=== PATIENT | female | born 1985 | race Caucasian/White ===

== ENCOUNTER 2019-10-29 09:29 | Emergency (ER) | payer BC, OTHER ==
[~2019-10-29] VITALS: Ht 168 cm; Wt 67.0 kg
--- NOTE | 2019-10-29 09:45 | ED GI ---
General Stated Complaint: N/V/D Source of Information: Patient History of Present Illness Date Seen by Provider: Oct 29, 2019 Time Seen by Provider: 09:40 Initial Comments 34-year-old female presents with nausea vomiting diarrhea. Patient reports that she hasn't been able to hold anything down for the last 3 days. She doesn't have abdominal pain but just a lot of nausea and some occasional cramping. Patient reports it started after she ate at a restaurant has not sure if she possibly got some food poisoning. Patient reports that she was only one that had eaten there. Patient does not have any cough, fevers. Patient does report some dark urine. No other systemic complaints Allergies and Home Medications Allergies Coded Allergies: nitrofurantoin (Verified Allergy, Unknown, headache, 10/29/19) Patient Home Medication List Home Medication List Reviewed: Yes Review of Systems Review of Systems Constitutional: No chills, No fever EENTM: No Symptoms Reported Respiratory: No Symptoms Reported Cardiovascular: No Symptoms Reported Gastrointestinal: Denies Abdominal Pain; Diarrhea, Nausea, Vomiting Genitourinary: See HPI Musculoskeletal: no symptoms reported Skin: no symptoms reported Past Qbpxijx-Qjwdvp-Dhrpne Hx Past Med/Social Hx: Reviewed Nursing Past Med/Soc Hx Patient Social History Recent Foreign Travel: No Contact w/Someone Who Travel: No Physical Exam Vital Signs Vital Signs - First Documented 10/29/19 09:47 Temp 36.8 Pulse 75 Resp 18 B/P (MAP) 112/89 (97) Pulse Ox 100 O2 Delivery Room Air Capillary Refill : Height/Weight/BMI Height: '" Weight: lbs. oz. kg; BMI Method: General Appearance: WD/WN, no apparent distress Respiratory: chest non-tender, lungs clear, normal breath sounds Cardiovascular: normal peripheral pulses, regular rate, rhythm Gastrointestinal: non tender, soft Neurologic/Psychiatric: alert, normal mood/affect, oriented x 3 Skin: normal color, warm/dry Progress/Results/Core Measures Results/Orders Lab Results Laboratory Tests Test 10/29/19 10:05 10/29/19 10:15 Range/Units Urine Color YELLOW Urine Clarity CLOUDY Urine pH 7.5 5-9 Urine Specific [place] 1.025 H 1.016-1.022 Urine Protein 1+ H NEGATIVE Urine Glucose (UA) NEGATIVE NEGATIVE Urine Ketones NEGATIVE NEGATIVE Urine Nitrite NEGATIVE NEGATIVE Urine Bilirubin NEGATIVE NEGATIVE Urine Urobilinogen 0.2 < = 1.0 MG/DL Urine Leukocyte Esterase 1+ H NEGATIVE Urine RBC (Auto) 2+ H NEGATIVE Urine RBC 10-25 H /HPF Urine WBC >100 H /HPF Urine Squamous Epithelial Cells 5-10 /HPF Urine Crystals NONE /LPF Urine Bacteria MODERATE H /HPF Urine Casts NONE /LPF Urine Mucus NEGATIVE /LPF Urine Culture Indicated YES White Blood Count 6.5 4.3-11.0 10^3/uL Red Blood Count 4.36 4.35-5.85 10^6/uL Hemoglobin 13.7 11.5-16.0 G/DL Hematocrit 41 35-52 % Mean Corpuscular Volume 94 80-99 FL Mean Corpuscular Hemoglobin 31 25-34 PG Mean Corpuscular Hemoglobin Concent 33 32-36 G/DL Red Cell Distribution Width 12.4 10.0-14.5 % Platelet Count 180 130-400 10^3/uL Mean Platelet Volume 9.5 7.4-10.4 FL Neutrophils (%) (Auto) 69 42-75 % Lymphocytes (%) (Auto) 24 12-44 % Monocytes (%) (Auto) 4 0-12 % Eosinophils (%) (Auto) 2 0-10 % Basophils (%) (Auto) 0 0-10 % Neutrophils # (Auto) 4.5 1.8-7.8 X 10^3 Lymphocytes # (Auto) 1.6 1.0-4.0 X 10^3 Monocytes # (Auto) 0.3 0.0-1.0 X 10^3 Eosinophils # (Auto) 0.1 0.0-0.3 10^3/uL Basophils # (Auto) 0.0 0.0-0.1 10^3/uL Sodium Level 141 135-145 MMOL/L Potassium Level 3.8 3.6-5.0 MMOL/L Chloride Level 110 H 98-107 MMOL/L Carbon Dioxide Level 23 21-32 MMOL/L Anion Gap 8 5-14 MMOL/L Blood Urea Nitrogen 15 7-18 MG/DL Creatinine 0.79 0.60-1.30 MG/DL Estimat Glomerular Filtration Rate > 60 BUN/Creatinine Ratio 19 Glucose Level 73 70-105 MG/DL Calcium Level 9.2 8.5-10.1 MG/DL Corrected Calcium 9.1 8.5-10.1 MG/DL Total Bilirubin 0.6 0.1-1.0 MG/DL Aspartate Amino Transf (AST/SGOT) 16 5-34 U/L Alanine Aminotransferase (ALT/SGPT) 16 0-55 U/L Alkaline Phosphatase 59 40-136 U/L Total Protein 6.8 6.4-8.2 GM/DL Albumin 4.1 3.2-4.5 GM/DL Lipase 60 8-78 U/L My Orders Orders - LAUREN CARLSON DO Cbc With Automated Diff (10/29/19 09:52) Comprehensive Metabolic Panel (10/29/19 09:52) Lipase (10/29/19 09:52) Ua Culture If Indicated (10/29/19 09:52) Abdomen, Flat & Upright/Decub (10/29/19 09:52) Ondansetron Injection (Zofran Injectio (10/29/19 10:00) Lactated Ringers (Lr 1000 Ml Iv Solution (10/29/19 09:52) Ed Iv/Invasive Line Start (10/29/19 09:52) Urine Culture (10/29/19 10:05) Medications Given in ED Current Medications Medications Dose Ordered Sig/Martina Route Start Time Stop Time Status Last Admin Dose Admin Ondansetron HCl 4 mg ONCE ONCE IVP 10/29/19 10:00 10/29/19 10:01 DC 10/29/19 10:17 4 MG Vital Signs/I&O 10/29/19 09:47 Temp 36.8 Pulse 75 Resp 18 B/P (MAP) 112/89 (97) Pulse Ox 100 O2 Delivery Room Air Progress Progress Note : Time: 10:51 Progress Note NAME: LAURENT MARQUEZ [facility] REC#: [id number] PT STATUS: REG ER : 1985 PHYSICIAN: LAUREN CARLSON DO ADMIT DATE: 10/29/19/ER Draft Date of Exam:10/29/19 ABDOMEN, FLAT & UPRIGHT/DECUB HISTORY: Nausea, vomiting, diarrhea. COMPARISON: None TECHNIQUE: Upright and supine frontal views of the abdomen. FINDINGS: The bowel loops are nondistended. No obstruction is seen. There is moderate stool throughout the colon. No large collection of free air is seen. No extraosseous calcifications are seen. Surgical clips are noted in the pelvis. IMPRESSION: 1. No bowel obstruction or large collection of free air. 2. Moderate stool in the colon Departure Impression Primary Impression: Constipation Qualified Codes: K59.00 - Constipation, unspecified Additional Impression: Cystitis Disposition: HOME, SELF-CARE Condition: Stable Departure-Patient Inst. Referrals: NO,LOCAL PHYSICIAN (PCP) Primary Care Physician Patient Instructions: Acute Cystitis (DC), Constipation, Adult (DC) Scripts Ondansetron (Ondansetron Odt) 4 Mg Tab.rapdis 4 MG PO Q6H PRN for NAUSEA/VOMITING, #20 TAB Prov: LAUREN CARLSON DO 10/29/19 Ciprofloxacin HCl (Ciprofloxacin HCl) 500 Mg Tablet 500 MG PO BID, #14 TAB Prov: LAUREN CARLSON DO 10/29/19 LAUREN CARLSON DO Oct 29, 2019 09:45
[2019-10-29] MEDS ORDERED: LACTATED RINGERS 1,000 ML IV STA (09:52)
[2019-10-29] MEDS ORDERED: ONDANSETRON 4 MG/2 ML (SDV) Z0FRAN IVP ONE (10:00)
[2019-10-29 10:13] LABS: BILIRUBIN,URINE NEGATIVE (NEGATIVE); CLARITY,URINE CLOUDY; COLOR,URINE YELLOW; GLUCOSE, URINE (UA) NEGATIVE (NEGATIVE); KETONES,URINE NEGATIVE (NEGATIVE); LEUKOCYTE ESTERASE ,URINE 1+ (NEGATIVE); NITRITE,URINE NEGATIVE (NEGATIVE); PH,URINE 7.5 (5-9); PROTEIN,URINE 1+ (NEGATIVE)
[2019-10-29 10:20] LABS: BACTERIA,URINE MODERATE /HPF; WBC,URINE >100 /HPF
[2019-10-29 10:27] LABS: BASOPHILS % (AUTO) 0 % (0-10); EOSINOPHILS # (AUTO) 0.1 10^3/uL (0.0-0.3); EOSINOPHILS % (AUTO) 2 % (0-10); HEMATOCRIT 41 % (35-52); HEMOGLOBIN 13.7 G/DL (11.5-16.0); LYMPHOCYTES # (AUTO) 1.6 X 10^3 (1.0-4.0); LYMPHOCYTES % (AUTO) 24 % (12-44); MEAN CORPUSCULAR HEMOGLOBIN 31 PG (25-34); MEAN CORPUSCULAR HGB CONC 33 G/DL (32-36); MEAN CORPUSCULAR VOLUME 94 FL (80-99); MEAN PLATELET VOLUME 9.5 FL (7.4-10.4); MONOCYTES # (AUTO) 0.3 X 10^3 (0.0-1.0); MONOCYTES % (AUTO) 4 % (0-12); NEUTROPHILS # (AUTO) 4.5 X 10^3 (1.8-7.8); NEUTROPHILS % (AUTO) 69 % (42-75); PLATELET COUNT 180 10^3/uL (130-400); RED CELL DISTRIBUTION WIDTH 12.4 % (10.0-14.5); WHITE BLOOD COUNT 6.5 10^3/uL (4.3-11.0)
--- NOTE | 2019-10-29 10:44 | Diagnostic Imaging Report ---
HISTORY: Nausea, vomiting, diarrhea. COMPARISON: None TECHNIQUE: Upright and supine frontal views of the abdomen. FINDINGS: The bowel loops are nondistended. No obstruction is seen. There is moderate stool throughout the colon. No large collection of free air is seen. No extraosseous calcifications are seen. Surgical clips are noted in the pelvis. IMPRESSION: 1. No bowel obstruction or large collection of free air. 2. Moderate stool in the colon. Dictated by: Dictated on workstation # [id number]
[2019-10-29 10:45] LABS: ALANINE AMINOTRANSFERASE 16 U/L (0-55); ALBUMIN 4.1 GM/DL (3.2-4.5); ALKALINE PHOSPHATASE 59 U/L (40-136); BILIRUBIN,TOTAL 0.6 MG/DL (0.1-1.0); BUN/CREATININE RATIO 19; CALCIUM 9.2 MG/DL (8.5-10.1); CARBON DIOXIDE 23 MMOL/L (21-32); CHLORIDE 110 MMOL/L (98-107); CREATININE SERUM 0.79 MG/DL (0.60-1.30); GFR ESTIMATED > 60; GLUCOSE 73 MG/DL (70-105); LIPASE 60 U/L (8-78); POTASSIUM 3.8 MMOL/L (3.6-5.0); SODIUM 141 MMOL/L (135-145); TOTAL PROTEIN 6.8 GM/DL (6.4-8.2)
[2019-10-29] MEDS ORDERED: CIPR500T4 PO (11:00)
[2019-10-29] MEDS ORDERED: ONDA4TAB11 PO (11:00)
[2019-10-29 11:10] VITALS: BP 112/89
== END 2019-10-29 11:10 | disposition home or self-care (01) ==
LOC: ER 09:31 → MERGE 09:31 → ER 11:10
DX: K59.00 Constipation, unspecified (principal); N30.90 Cystitis, unspecified without hematuria; Z88.1 Allergy status to other antibiotic agents
CPT/HCPCS: 36415; 74019; 80053; 81000; 83690; 85025; 87088; 87186

== ENCOUNTER → 2019-12-04 | Outpatient (CLI) | payer BC ==
[~2019-12-04] MED LIST: CIPR500T4 PO; ONDA4TAB11 PO
[2019-12-04 10:08] LABS: BILIRUBIN,URINE NEGATIVE (NEGATIVE); CLARITY,URINE TURBID; COLOR,URINE YELLOW; GLUCOSE, URINE (UA) NEGATIVE (NEGATIVE); KETONES,URINE NEGATIVE (NEGATIVE); LEUKOCYTE ESTERASE ,URINE 1+ (NEGATIVE); NITRITE,URINE POSITIVE (NEGATIVE); PROTEIN,URINE TRACE (NEGATIVE)
[2019-12-04 10:16] LABS: BACTERIA,URINE MODERATE /HPF; RBC,URINE RARE /HPF; WBC,URINE >100 /HPF
== END ==
LOC: SDC 09:53
PROVIDERS: ATTEND Nurse Practitioner Family
DX: R35.0 Frequency of micturition (principal)
CPT/HCPCS: 81000; 87077; 87088

== ENCOUNTER → 2020-03-12 | Outpatient (CLI) | payer BC ==
[2020-03-12 11:02] LABS: BILIRUBIN,URINE NEGATIVE (NEGATIVE); CLARITY,URINE CLEAR; COLOR,URINE YELLOW; GLUCOSE, URINE (UA) NEGATIVE (NEGATIVE); KETONES,URINE NEGATIVE (NEGATIVE); LEUKOCYTE ESTERASE ,URINE 1+ (NEGATIVE); NITRITE,URINE NEGATIVE (NEGATIVE); PROTEIN,URINE 1+ (NEGATIVE)
[2020-03-12 11:18] LABS: BACTERIA,URINE MODERATE /HPF; WBC,URINE >100 /HPF
== END ==
LOC: LAB 10:43
PROVIDERS: ATTEND Family Medicine
DX: R30.0 Dysuria (principal)
CPT/HCPCS: 81000; 87077; 87088; 87186

== ENCOUNTER → 2020-07-15 | Outpatient (CLI) | payer BC ==
[2020-07-15 10:26] LABS: BILIRUBIN,URINE NEGATIVE (NEGATIVE); CLARITY,URINE CLOUDY; COLOR,URINE YELLOW; GLUCOSE, URINE (UA) NEGATIVE (NEGATIVE); KETONES,URINE NEGATIVE (NEGATIVE); LEUKOCYTE ESTERASE ,URINE TRACE (NEGATIVE); NITRITE,URINE NEGATIVE (NEGATIVE); PH,URINE 5.5 (5-9); PROTEIN,URINE NEGATIVE (NEGATIVE)
[2020-07-15 10:35] LABS: AMORPHOUS SEDIMENT,UR FEW AMOR URATES /LPF; BACTERIA,URINE MODERATE /HPF
== END ==
LOC: LAB 09:46
PROVIDERS: ATTEND Nurse Practitioner Family
DX: R10.2 Pelvic and perineal pain (principal); R30.0 Dysuria
CPT/HCPCS: 81000; 87088

== ENCOUNTER → 2020-07-22 | Outpatient (CLI) | payer BC ==
--- NOTE | 2020-07-22 16:45 | Diagnostic Imaging Report ---
PROCEDURE: US Non-ob pelvis comp/trans. TECHNIQUE: Multiple realtime grayscale images were obtained of the pelvis in various projections, endovaginally. Transabdominal imaging was also performed. INDICATION: Pelvic pain. Heavy menses. COMPARISON: None. FINDINGS: Uterus is anteverted. It measures 8.1 cm in length x 3.5 cm in AP dimension x 4.2 cm transversely. No focal myometrial mass is seen. Endometrial stripe is within normal limits and measures 3 mm in AP thickness. Included portions of the cervix show nabothian cysts that measure 1.2 x 0.8 x 1.0 cm. Bilateral ovaries are visualized. Multiple ovarian follicles are identified on the right. Otherwise, ovaries have an unremarkable sonographic appearance. Right ovary measures 2.7 x 1.4 x 1.5 cm and the left measures 2.2 x 1.2 x 1.6 cm. No adnexal mass or free fluid is seen. IMPRESSION: Unremarkable pelvic sonogram. Dictated by: Dictated on workstation # [id number]
== END ==
LOC: RAD 13:00
PROVIDERS: ATTEND Nurse Practitioner Family
DX: N92.0 Excessive and frequent menstruation with regular cycle (principal)
CPT/HCPCS: 76830; 76856

== ENCOUNTER → 2020-08-26 | Outpatient (CLI) | payer BC ==
[2020-08-26 13:49] LABS: BILIRUBIN,URINE NEGATIVE (NEGATIVE); CLARITY,URINE CLEAR; COLOR,URINE YELLOW; GLUCOSE, URINE (UA) NEGATIVE (NEGATIVE); KETONES,URINE NEGATIVE (NEGATIVE); LEUKOCYTE ESTERASE ,URINE 2+ (NEGATIVE); NITRITE,URINE POSITIVE (NEGATIVE); PROTEIN,URINE NEGATIVE (NEGATIVE)
[2020-08-26 14:06] LABS: BACTERIA,URINE LARGE /HPF; RBC,URINE 0-2 /HPF; WBC,URINE 50-100 /HPF
== END ==
LOC: LAB 13:05
PROVIDERS: ATTEND Nurse Practitioner Family
DX: R30.0 Dysuria (principal); G43.909 Migraine, unspecified, not intractable, without status migrainosus; Z91.018 Allergy to other foods; R14.0 Abdominal distension (gaseous)
CPT/HCPCS: 36415; 81000; 82784; 83516; 86003; 87077; 87088; 87186

== ENCOUNTER → 2020-10-27 | Outpatient (CLI) | payer BC ==
[~2020-10-27] MED LIST changes: -CIPR500T4 PO; +CIPR500T5 PO
--- NOTE | 2020-10-27 12:30 | Diagnostic Imaging Report ---
Indication: Routine screening. No prior mammograms are available for comparison. This a baseline study. 2-D and 3-D bilateral screening mammography was performed with CAD. Both breasts are heterogeneously dense, limiting the sensitivity of mammography. No mass or malignant appearing microcalcifications are seen. Axillae are unremarkable. IMPRESSION: BI-RADS Category 1 No mammographic features suspicious for malignancy are identified. ACR BI-RADS Category 1: Negative. Result letter will be mailed to the patient. Note: At least 10% of breast cancer is not imaged by mammography. Dictated by: Dictated on workstation # [id number]
== END ==
LOC: RAD 11:15
PROVIDERS: ATTEND Nurse Practitioner Family
DX: Z12.31 Encounter for screening mammogram for malignant neoplasm of breast (principal); Z80.3 Family history of malignant neoplasm of breast
CPT/HCPCS: 77063; 77067

== ENCOUNTER 2020-12-06 16:56 | Emergency (ER) | payer BC, OTHER ==
[~2020-12-06] VITALS: Ht 167 cm; Wt 63.0 kg
--- NOTE | 2020-12-06 17:06 | ED General ---
General Chief Complaint: Abdominal/GI Problems Stated Complaint: GALBLADDER PAIN Source of Information: Patient Exam Limitations: No Limitations History of Present Illness Date Seen by Provider: Dec 06, 2020 Time Seen by Provider: 17:04 Initial Comments To ER with right upper quadrant abdominal pain as well as nausea vomiting and diarrhea for 11 days. This began after her father and she initially thought it might be nerves but now she believes it may be diarrhea. She is on Macrobid and amoxicillin following a cervical cancer removal recently. Timing/Duration: Other Severity: Moderate Associated Systoms: Nausea/Vomiting Allergies and Home Medications Allergies Coded Allergies: nitrofurantoin (Verified Allergy, Unknown, headache, 10/30/19) Home Medications Ciprofloxacin HCl 500 Mg Tablet, 500 MG PO BID Prescribed by: LAUREN CARLSON on 10/29/19 1100 Ondansetron 4 Mg Tab.rapdis, 4 MG PO Q6H PRN for NAUSEA/VOMITING Prescribed by: LAUREN CARLSON on 10/29/19 1100 Patient Home Medication List Home Medication List Reviewed: Yes Review of Systems Review of Systems Constitutional: see HPI EENTM: see HPI Respiratory: no symptoms reported Cardiovascular: no symptoms reported Gastrointestinal: abdominal pain, nausea, vomiting Genitourinary: no symptoms reported Musculoskeletal: no symptoms reported Skin: no symptoms reported Psychiatric/Neurological: No Symptoms Reported Hematologic/Lymphatic: No Symptoms Reported Past Ibrelln-Birocf-Jzjncv Hx Patient Social History Type Used: Cigarettes Recent Hopitalizations: No Immunizations Up To Date Date of Influenza Vaccine: Jul 31, 2019 Past Medical History Surgeries: Yes Tubal Ligation Cardiac: No Neurological: No Genitourinary: No Gastrointestinal: No Musculoskeletal: No Endocrine: No HEENT: No Cancer: No Psychosocial: No Physical Exam Vital Signs Vital Signs - First Documented 12/06/20 17:01 Temp 38.1 Pulse 91 Resp 10 B/P (MAP) 122/94 (103) Pulse Ox 98 O2 Delivery Room Air Capillary Refill : Height, Weight, BMI Height: '" Weight: lbs. oz. kg; 23.00 BMI Method: General Appearance: No Apparent Distress, WD/WN Eyes: Bilateral Eye Normal Inspection, Bilateral Eye PERRL, Bilateral Eye EOMI Neck: Full Range of Motion, Normal Inspection Respiratory: Normal Breath Sounds, No Accessory Muscle Use, No Respiratory Distress Cardiovascular: Regular Rate, Rhythm, Normal Peripheral Pulses Gastrointestinal: Normal Bowel Sounds, Soft, Tenderness (Right upper quadrant) Neurologic/Psychiatric: Alert, Oriented x3 Skin: Normal Color, Warm/Dry Progress/Results/Core Measures Suspected Sepsis SIRS Temperature: Pulse: Respiratory Rate: Laboratory Tests 12/06/20 17:09: White Blood Count 5.7 Blood Pressure / Mean: Laboratory Tests 12/06/20 17:09: Creatinine 0.90, Platelet Count 202, Total Bilirubin 0.6 Results/Orders Lab Results Laboratory Tests Test 12/06/20 17:09 12/06/20 17:19 Range/Units White Blood Count 5.7 4.3-11.0 10^3/uL Red Blood Count 4.71 3.80-5.11 10^6/uL Hemoglobin 14.5 11.5-16.0 g/dL Hematocrit 44 35-52 % Mean Corpuscular Volume 93 80-99 fL Mean Corpuscular Hemoglobin 31 25-34 pg Mean Corpuscular Hemoglobin Concent 33 32-36 g/dL Red Cell Distribution Width 11.9 10.0-14.5 % Platelet Count 202 130-400 10^3/uL Mean Platelet Volume 9.2 9.0-12.2 fL Immature Granulocyte % (Auto) 0 % Neutrophils (%) (Auto) 74 42-75 % Lymphocytes (%) (Auto) 19 12-44 % Monocytes (%) (Auto) 7 0-12 % Eosinophils (%) (Auto) 0 0-10 % Basophils (%) (Auto) 0 0-10 % Neutrophils # (Auto) 4.2 1.8-7.8 10^3/uL Lymphocytes # (Auto) 1.1 1.0-4.0 10^3/uL Monocytes # (Auto) 0.4 0.0-1.0 10^3/uL Eosinophils # (Auto) 0.0 0.0-0.3 10^3/uL Basophils # (Auto) 0.0 0.0-0.1 10^3/uL Immature Granulocyte # (Auto) 0.0 0.0-0.1 10^3/uL Sodium Level 137 135-145 MMOL/L Potassium Level 3.7 3.6-5.0 MMOL/L Chloride Level 104 98-107 MMOL/L Carbon Dioxide Level 23 21-32 MMOL/L Anion Gap 10 5-14 MMOL/L Blood Urea Nitrogen 11 7-18 MG/DL Creatinine 0.90 0.60-1.30 MG/DL Estimat Glomerular Filtration Rate > 60 BUN/Creatinine Ratio 12 Glucose Level 110 H 70-105 MG/DL Calcium Level 9.5 8.5-10.1 MG/DL Corrected Calcium 9.2 8.5-10.1 MG/DL Total Bilirubin 0.6 0.1-1.0 MG/DL Aspartate Amino Transf (AST/SGOT) 19 5-34 U/L Alanine Aminotransferase (ALT/SGPT) 24 0-55 U/L Alkaline Phosphatase 77 40-136 U/L Total Protein 7.7 6.4-8.2 GM/DL Albumin 4.4 3.2-4.5 GM/DL Lipase 48 8-78 U/L Urine Color YELLOW Urine Clarity CLEAR Urine pH 6.5 5-9 Urine Specific [place] 1.020 1.016-1.022 Urine Protein NEGATIVE NEGATIVE Urine Glucose (UA) NEGATIVE NEGATIVE Urine Ketones NEGATIVE NEGATIVE Urine Nitrite NEGATIVE NEGATIVE Urine Bilirubin NEGATIVE NEGATIVE Urine Urobilinogen 0.2 < = 1.0 MG/DL Urine Leukocyte Esterase NEGATIVE NEGATIVE Urine RBC (Auto) NEGATIVE NEGATIVE Urine RBC 2-5 H /HPF Urine WBC 10-25 H /HPF Urine Squamous Epithelial Cells 10-25 H /HPF Urine Crystals NONE /LPF Urine Bacteria FEW H /HPF Urine Casts NONE /LPF Urine Mucus MODERATE H /LPF Urine Culture Indicated YES My Orders Orders - LYNN REAVES APRN Ondansetron Injection (Zofran Injectio (12/06/20 17:15) Lactated Ringers (Lr 1000 Ml Iv Solution (12/06/20 17:15) Cbc With Automated Diff (12/06/20 17:03) Comprehensive Metabolic Panel (12/06/20 17:03) Lipase (12/06/20 17:03) Ua Culture If Indicated (12/06/20 17:03) Ed Iv/Invasive Line Start (12/06/20 17:03) Urine Culture (12/06/20 17:19) Ceftriaxone For Iv Use (Rocephin For I (12/06/20 18:00) Medications Given in ED Current Medications Medications Dose Ordered Sig/Martina Route Start Time Stop Time Status Last Admin Dose Admin Ondansetron HCl 8 mg ONCE ONCE IVP 12/06/20 17:15 12/06/20 17:16 DC 12/06/20 17:23 8 MG Vital Signs/I&O 12/06/20 17:01 Temp 38.1 Pulse 91 Resp 10 B/P (MAP) 122/94 (103) Pulse Ox 98 O2 Delivery Room Air Capillary Refill : Departure Impression Primary Impression: Nausea and vomiting Additional Impression: Urinary tract infection Disposition: HOME, SELF-CARE Condition: Stable Departure-Patient Inst. Decision time for Depature: 17:53 Referrals: BRADLY BALLARD DO (PCP/Family) Primary Care Physician Patient Instructions: No Instuctions Given Add. Discharge Instructions: 1. Nausea medication as needed. Stop the amoxicillin and replace it with the prescribed antibiotic that was given here. You can start that tomorrow. Call Dr. Ballard to schedule further evaluation of your gallbladder such as with ultrasound. All discharge instructions reviewed with patient and/or family. Voiced understanding. Scripts Cefdinir (Cefdinir) 300 Mg Capsule 300 MG PO BID, #10 CAP Prov: LYNN REAVES DIRECTOR OF CARDIOLOGY 12/06/20 Ondansetron (Ondansetron Odt) 8 Mg Tab.rapdis 8 MG PO Q6H PRN for NAUSEA/VOMITING, #14 TAB Prov: LYNN REAVES DIRECTOR OF CARDIOLOGY 12/06/20 Work/School Note: Work Release Form Date Seen in the Emergency Department: Dec 06, 2020 Return to Work: Dec 08, 2020 Copy Copies To 1: BRADLY BALLARD PETER J APRN Dec 06, 2020 17:06
[2020-12-06 17:15] LABS: BASOPHILS % (AUTO) 0 % (0-10); EOSINOPHILS % (AUTO) 0 % (0-10); HEMATOCRIT 44 % (35-52); HEMOGLOBIN 14.5 g/dL (11.5-16.0); LYMPHOCYTES # (AUTO) 1.1 10^3/uL (1.0-4.0); LYMPHOCYTES % (AUTO) 19 % (12-44); MEAN CORPUSCULAR HEMOGLOBIN 31 pg (25-34); MEAN CORPUSCULAR HGB CONC 33 g/dL (32-36); MEAN CORPUSCULAR VOLUME 93 fL (80-99); MEAN PLATELET VOLUME 9.2 fL (9.0-12.2); MONOCYTES # (AUTO) 0.4 10^3/uL (0.0-1.0); MONOCYTES % (AUTO) 7 % (0-12); NEUTROPHILS # (AUTO) 4.2 10^3/uL (1.8-7.8); NEUTROPHILS % (AUTO) 74 % (42-75); PLATELET COUNT 202 10^3/uL (130-400); WHITE BLOOD COUNT 5.7 10^3/uL (4.3-11.0)
[2020-12-06] MEDS ORDERED: LACTATED RINGERS 1,000 ML IV SCH (17:15)
[2020-12-06] MEDS ORDERED: ONDANSETRON 4 MG/2 ML (SDV) Z0FRAN IVP ONE (17:15)
[2020-12-06 17:26] LABS: BILIRUBIN,URINE NEGATIVE (NEGATIVE); CLARITY,URINE CLEAR; COLOR,URINE YELLOW; GLUCOSE, URINE (UA) NEGATIVE (NEGATIVE); KETONES,URINE NEGATIVE (NEGATIVE); LEUKOCYTE ESTERASE ,URINE NEGATIVE (NEGATIVE); NITRITE,URINE NEGATIVE (NEGATIVE); PH,URINE 6.5 (5-9); PROTEIN,URINE NEGATIVE (NEGATIVE)
[2020-12-06 17:31] LABS: ALBUMIN 4.4 GM/DL (3.2-4.5); CHLORIDE 104 MMOL/L (98-107); POTASSIUM 3.7 MMOL/L (3.6-5.0); SODIUM 137 MMOL/L (135-145)
[2020-12-06 17:32] LABS: CALCIUM 9.5 MG/DL (8.5-10.1)
[2020-12-06 17:33] LABS: GLUCOSE 110 MG/DL (70-105); TOTAL PROTEIN 7.7 GM/DL (6.4-8.2)
[2020-12-06 17:34] LABS: CARBON DIOXIDE 23 MMOL/L (21-32)
[2020-12-06 17:35] LABS: BILIRUBIN,TOTAL 0.6 MG/DL (0.1-1.0)
[2020-12-06 17:35] LABS: BACTERIA,URINE FEW /HPF
[2020-12-06 17:37] LABS: ALKALINE PHOSPHATASE 77 U/L (40-136); GFR ESTIMATED > 60
[2020-12-06 17:38] LABS: BUN/CREATININE RATIO 12
[2020-12-06 17:40] LABS: ALANINE AMINOTRANSFERASE 24 U/L (0-55); LIPASE 48 U/L (8-78)
[2020-12-06] MEDS ORDERED: ONDA8TAB13 PO (17:55)
[2020-12-06] MEDS ORDERED: CEFD300C3 PO (17:55)
[2020-12-06] MEDS ORDERED: cefTRIAXone FOR IV USE 1,000 MG in WATER (STERILE) FOR INJECTION 10 ML IV ONE (18:00)
[2020-12-06] MEDS ORDERED: HYOSCYAMINE 0.125 MG (LEVSIN) TAB PO ONE (18:00)
[2020-12-06 18:40] VITALS: BP 106/62
== END 2020-12-06 18:40 | disposition home or self-care (01) ==
LOC: EDUNIT# 16:56 → ER 16:58
DX: R11.2 Nausea with vomiting, unspecified (principal); N39.0 Urinary tract infection, site not specified; Z88.8 Allergy status to other drugs, medicaments and biological substances
CPT/HCPCS: 36415; 80053; 81000; 83690; 84703; 85025; 87088; 96374; 96375

== ENCOUNTER → 2020-12-08 | Outpatient (CLI) | payer BC, OTHER ==
[~2020-12-08] MED LIST changes: +CEFD300C3 PO; +ONDA8TAB13 PO
--- NOTE | 2020-12-08 09:36 | Diagnostic Imaging Report ---
PROCEDURE: US Gallbladder. TECHNIQUE: Multiple real-time grayscale images were obtained over the right upper quadrant in various projections. INDICATION: Upper abdominal pain. Nausea, vomiting, diarrhea. COMPARISON: None FINDINGS: The liver is borderline enlarged, as it measures 18 cm in length. Liver is otherwise normal in shape and echotexture. There are no focal lesions. No intra or extrahepatic biliary dilatation is present. The common bile duct is not dilated and measures 3 mm. There is no evidence of cholelithiasis, gallbladder wall thickening, or pericholecystic fluid. The visualized portions of the head and proximal body of the pancreas are within normal limits. The distal body and tail of the pancreas are not visualized due to overlying bowel gas. There is no ascites. The right kidney measures approximately 8.8 cm in length. Right kidney has somewhat lobulated appearance, which may be on the basis of persistent lobulation. Similar appearance may also be seen with cortical thinning related to prior infection or infarction. The visualized portions of the IVC and aorta are normal. IMPRESSION: 1. No cholelithiasis or sonographic evidence of acute cholecystitis. 2. Borderline hepatomegaly. 3. Lobulated appearance kidney, which again is favored to be on the basis of persistent lobulation. Sequela of previous infection or infarction may have a similar appearance. Dictated by: Dictated on workstation # [id number]
== END ==
LOC: RAD 08:00
PROVIDERS: ATTEND Nurse Practitioner Family
DX: R10.11 Right upper quadrant pain (principal); R11.2 Nausea with vomiting, unspecified; R19.7 Diarrhea, unspecified
CPT/HCPCS: 76705

== ENCOUNTER 2020-12-09 11:21 | Outpatient (RCR) | payer BC, OTHER | END 2021-03-09 | disposition home or self-care (01) | LOC: LAB 11:21 | PROVIDERS: ATTEND Family Medicine | DX: R19.7 Diarrhea, unspecified (principal) | CPT/HCPCS: 87015; 87045; 87046; 87077; 87899 ==

== ENCOUNTER → 2020-12-21 | Outpatient (CLI) | payer BC ==
[2020-12-21 15:20] LABS: BILIRUBIN,URINE NEGATIVE (NEGATIVE); CLARITY,URINE CLEAR; COLOR,URINE YELLOW; GLUCOSE, URINE (UA) NEGATIVE (NEGATIVE); KETONES,URINE NEGATIVE (NEGATIVE); LEUKOCYTE ESTERASE ,URINE 1+ (NEGATIVE); NITRITE,URINE NEGATIVE (NEGATIVE); PH,URINE 5.5 (5-9); PROTEIN,URINE NEGATIVE (NEGATIVE)
[2020-12-21 15:42] LABS: AMORPHOUS SEDIMENT,UR RARE AMOR URATES /LPF; BACTERIA,URINE TRACE /HPF
== END ==
LOC: LAB 15:10
PROVIDERS: ATTEND Family Medicine
DX: N39.0 Urinary tract infection, site not specified (principal)
CPT/HCPCS: 81000

== ENCOUNTER → 2021-03-29 | Outpatient (CLI) | payer BC, OTHER | LOC: LAB 11:25 | PROVIDERS: ATTEND Nurse Practitioner Family | DX: Z01.83 Encounter for blood typing (principal) | CPT/HCPCS: 36415; 86900; 86901 ==

== ENCOUNTER → 2021-11-22 | Outpatient (CLI) | payer OTHER ==
[2021-11-22 14:20] LABS: BILIRUBIN,URINE NEGATIVE (NEGATIVE); CLARITY,URINE CLEAR; COLOR,URINE YELLOW; GLUCOSE, URINE (UA) NEGATIVE (NEGATIVE); KETONES,URINE NEGATIVE (NEGATIVE); LEUKOCYTE ESTERASE ,URINE 2+ (NEGATIVE); NITRITE,URINE NEGATIVE (NEGATIVE); PROTEIN,URINE NEGATIVE (NEGATIVE)
[2021-11-22 14:31] LABS: BACTERIA,URINE LARGE /HPF
== END ==
LOC: SDC 12:03
PROVIDERS: ATTEND Nurse Practitioner Family
DX: R30.0 Dysuria (principal)
CPT/HCPCS: 81000; 87088

== ENCOUNTER → 2021-12-23 | Outpatient (CLI) | payer OTHER ==
--- NOTE | 2021-12-23 12:37 | Diagnostic Imaging Report ---
PROCEDURE: CT abdomen and pelvis without contrast. TECHNIQUE: Multiple contiguous axial images were obtained through the abdomen and pelvis without the use of intravenous contrast. Auto Exposure Controls were utilized during the CT exam to meet ALARA standards for radiation dose reduction. INDICATION: Right flank pain, frequent urinary tract infections and kidney stones. No prior studies are available for comparison. The lung bases are clear. The liver and gallbladder are unremarkable. The pancreas and spleen are unremarkable. No adrenal mass is detected. There appears to be some cortical scarring involving the right kidney. The left kidney is unremarkable. No definite calculi are detected. There is no hydronephrosis. No ureteral or bladder calculi are detected. The aorta is nonaneurysmal. The small and large bowel loops are normal caliber. There is no obstruction. The appendix is unremarkable in the right lower quadrant. No free fluid or fluid collection is seen. There are surgical clips in the pelvis. The uterus is unremarkable. IMPRESSION: Cortical scarring of the right kidney. No urinary tract calculi or obstruction is identified. No acute feature is detected. Dictated by: Dictated on workstation # [id number]
== END ==
LOC: RAD 12:15
PROVIDERS: ATTEND Urology
DX: N39.0 Urinary tract infection, site not specified (principal); N20.0 Calculus of kidney
CPT/HCPCS: 74176

== ENCOUNTER 2022-01-30 06:00 | Emergency (ER) | payer OTHER ==
[~2022-01-30] VITALS: Ht 168 cm; Wt 68.0 kg
--- NOTE | 2022-01-30 06:41 | ED Headache ---
General Chief Complaint: Head/Cervical Problems Stated Complaint: MIGRAINE Nursing Triage Note: Pt arrives w/ c/o "migraine." States that has rx for Immitrex, but had ran out. Ambulatory to room. VS obtained. Source: patient Exam Limitations: no limitations History of Present Illness Date Seen by Provider: Jan 30, 2022 Time Seen by Provider: 06:30 Initial Comments Patient is a 36-year-old female who presents to the emergency department today with a chief complaint of "migraine". She states she took her kids to a water park yesterday and did not drink enough water. She has had gradual in increased intensity of her migraine over the last several hours. She did vomit in the car on the way to the hospital. Light makes her headache worse. She has had migraines for "years". She states she usually has Imitrex for migraines but ran out. She has taken some ibuprofen but it has not helped. No recent fevers, chills, sinus congestion, cough or shortness of breath. No abdominal pain. No other complaints of illness. Patient states this is classic for her migraines. She is requesting a dose of Imitrex. All other review of systems reviewed and negative except as stated. Timing/Duration: 4-6 hours Severity/Quality: severe, constant, pressure, throbbing Location: frontal (right sided) Prior Headaches/Recent Trauma: frequent headaches Modifying Factors: worse with exposure to light Associated Symptoms: No confusion, No facial pain, No fever/chills; nausea/vomiting; No nasal congestion, No nasal drainage, No rash, No sinus infection, No stiff neck, No vision changes Allergies and Home Medications Allergies Coded Allergies: nitrofurantoin (Verified Allergy, Unknown, headache, 10/30/19) Patient Home Medication List Home Medication List Reviewed: Yes Cefdinir (Cefdinir) 300 Mg Capsule, 300 MG PO BID Prescribed by: LYNN REAVES on 12/06/20 175 Ciprofloxacin HCl (Ciprofloxacin HCl) 500 Mg Tablet, 500 MG PO BID Prescribed by: LAUREN CARLSON on 10/29/19 1100 Ondansetron (Ondansetron Odt) 4 Mg Tab.rapdis, 4 MG PO Q6H PRN for NAUSEA /VOMITING Prescribed by: LAUREN CARLSON on 10/29/19 1100 Ondansetron (Ondansetron Odt) 8 Mg Tab.rapdis, 8 MG PO Q6H PRN for NAUSEA/VOMITING Prescribed by: LYNN REAVES on 12/06/20 0612 Review of Systems Review of Systems Constitutional: see HPI Eyes: No Symptoms Reported Ears, Nose, Mouth, Throat: no symptoms reported Respiratory: no symptoms reported Cardiovascular: no symptoms reported Gastrointestinal: nausea, vomiting Genitourinary: no symptoms reported Musculoskeletal: no symptoms reported Skin: no symptoms reported Psychiatric/Neurological: Headache All Other Systems Reviewed Negative Unless Noted: Yes Past Vnobums-Qaypyc-Kborzk Hx Patient Social History Tobacco Use?: No Use of E-Cig and/or Vaping dev: No Substance use?: No Alcohol Use?: No Immunizations Up To Date First/Initial COVID19 Vaccinat: 2020 Second COVID19 Vaccination Mendel: 2020 Past Medical History Surgeries: Yes Tubal Ligation Cardiac: No Neurological: No Genitourinary: No Gastrointestinal: No Musculoskeletal: No Endocrine: No HEENT: No Cancer: No Psychosocial: No Physical Exam Vital Signs Vital Signs - First Documented 01/30/22 06:25 Temp 36.3 Pulse 66 Resp 20 B/P (MAP) 122/94 (103) Pulse Ox 100 Capillary Refill : Less Than 3 Seconds Height, Weight, BMI Height: '" Weight: lbs. oz. kg; 24.00 BMI Method: General Appearance: WD/WN, no apparent distress HEENT: PERRL/EOMI, normal ENT inspection, pharynx normal Neck: non-tender, full range of motion, supple, normal inspection Cardiovascular: regular rate, rhythm Respiratory: lungs clear, normal breath sounds, no respiratory distress, no accessory muscle use Extremities: normal range of motion, non-tender, normal inspection, normal capillary refill Psychiatric: alert, oriented x 3 Crainal Nerves: normal hearing, normal speech, PERRL Coordination/Gait: normal gait Motor/Sensory: no motor deficit, no sensory deficit Skin: normal color, warm/dry Progress/Results/Core Measures Results/Orders My Orders Orders - HAROON KEVIN MD Sumatriptan Injection (Imitrex Injection (01/30/22 06:45) Medications Given in ED Current Medications Medications Dose Ordered Sig/Martina Route Start Time Stop Time Status Last Admin Dose Admin Sumatriptan Succinate 6 mg ONCE ONCE SQ 01/30/22 06:45 01/30/22 06:46 DC 01/30/22 06:53 6 MG Vital Signs/I&O 01/30/22 06:25 Temp 36.3 Pulse 66 Resp 20 B/P (MAP) 122/94 (103) Pulse Ox 100 Blood Pressure Mean: 103 Progress Progress Note : Time: 06:57 Progress Note Patient is already starting to feel somewhat improved after the sumatriptan injection and its not quite been 15 minutes. She will be sent home with a prescription to her pharmacy for a refill of her Imitrex. Return precautions have been discussed. All questions are sought and answered. Departure Impression Primary Impression: Migraine Qualified Codes: G43.909 - Migraine, unspecified, not intractable, without status migrainosus Disposition: HOME, SELF-CARE Condition: Improved Departure-Patient Inst. Referrals: BRADLY BALLARD DO (PCP/Family) Primary Care Physician Add. Discharge Instructions: Drink plenty of fluids to stay well-hydrated today. If you need to after an injection, and 1 hour you can follow-up with a 100 mg tablet. Do not take anymore in the 24-hour period If you develop fever, upper respiratory tract infection symptoms, persistent nausea vomiting or any other emergent concerns please come back to the emergency department for reevaluation. Scripts Sumatriptan Succinate (Sumatriptan Succinate) 100 Mg Tablet 100 MG PO ONCE PRN for migraine MDD 200, #12 TAB May repeat x1 in 2h after first dose; max 200mg/24hr Prov: HAROON KEVIN MD 01/30/22 HAROON KEVIN MD Jan 30, 2022 06:41
[2022-01-30] MEDS ORDERED: SUMAtriptan 6 MG/0.5 ML (IMITREX) INJ SQ ONE (06:45)
[2022-01-30] MEDS ORDERED: SUMA100T3 PO (06:59)
[2022-01-30 07:07] VITALS: BP 112/83
== END 2022-01-30 07:06 | disposition home or self-care (01) ==
LOC: EDUNIT# 06:00 → ER 06:02
DX: G43.909 Migraine, unspecified, not intractable, without status migrainosus (principal); Z79.899 Other long term (current) drug therapy
CPT/HCPCS: 99284

== ENCOUNTER 2022-09-03 03:26 | Emergency (ER) | payer OTHER ==
[~2022-09-03] VITALS: Ht 167.7 cm; Wt 68.0 kg
[~2022-09-03 03:26] MED LIST changes: +SUMA100T3 PO
[2022-09-03] MEDS ORDERED: IBUPROFEN 600 MG (MOTRIN) TAB PO ONE (03:45)
--- NOTE | 2022-09-03 03:48 | ED Cough/URI ---
General Chief Complaint: Cough/Cold/Flu Symptoms Stated Complaint: SORE THROAT, BODY ACHES,COUGH Source: patient Exam Limitations: no limitations History of Present Illness Date Seen by Provider: Sep 03, 2022 Time Seen by Provider: 03:31 Initial Comments 36-year-old female with no pertinent past medical history coming in due to 1 day of cough, congestion, sore throat, body aches. No fever that she knows of. Last had ibuprofen yesterday for her sore throat. Her sore throat is mild to moderate, constant, sharp, worse with swallowing, better with rest. Otherwise denies any chest pain, shortness of breath at this moment, abdominal pain, nausea, vomiting, diarrhea, weakness, numbness, or any other concerns. She did get a flu shot this year. Her daughter had the flu 2 weeks ago. Allergies and Home Medications Allergies Coded Allergies: nitrofurantoin (Verified Allergy, Unknown, headache, 10/30/19) Patient Home Medication List Home Medication List Reviewed: Yes Cefdinir (Cefdinir) 300 Mg Capsule, 300 MG PO BID Prescribed by: LYNN REAVES on 12/06/201754 Ciprofloxacin HCl (Ciprofloxacin HCl) 500 Mg Tablet, 500 MG PO BID Prescribed by: LAUREN CARLSON on 10/29/19 1100 Ondansetron (Ondansetron Odt) 4 Mg Tab.rapdis, 4 MG PO Q6H PRN for NAUSEA/VOMITING Prescribed by: LAUREN CARLSON on 10/29/19 1100 Ondansetron (Ondansetron Odt) 8 Mg Tab.rapdis, 8 MG PO Q6H PRN for NAUSEA/VOMITING Prescribed by: LYNN REAVES on 12/06/201754 Sumatriptan Succinate (Sumatriptan Succinate) 100 Mg Tablet, 100 MG PO ONCE PRN for migraine Prescribed by: HAROON KEVIN on 01/30/22 0659 Review of Systems Review of Systems Constitutional: malaise EENTM: nose congestion Respiratory: cough Cardiovascular: No chest pain Gastrointestinal: No abdominal pain Genitourinary: no symptoms reported Musculoskeletal: no symptoms reported Skin: no symptoms reported Psychiatric/Neurological: No Symptoms Reported All Other Systems Reviewed Negative Unless Noted: Yes Past Fdlhaxs-Ebzomg-Hxoqat Hx Patient Social History Tobacco Use?: No Substance use?: No Alcohol Use?: No Immunizations Up To Date Influenza Vaccine Up-to-Date: Yes; Up-to-Date First/Initial COVID19 Vaccinat: 2020 Second COVID19 Vaccination Mendel: 2020 Third COVID19 Vaccination Date: 2020 Past Medical History Surgeries: Yes Tubal Ligation Cardiac: No Neurological: No Genitourinary: No Gastrointestinal: No Musculoskeletal: No Endocrine: No HEENT: No Cancer: No Psychosocial: No Physical Exam Vital Signs - First Documented 09/03/22 03:35 O2 Delivery Room Air Capillary Refill : Height: '" Weight: lbs. oz. kg; 24.00 BMI Method: General Appearance: WD/WN, no apparent distress Eyes: Bilateral Eye Normal Inspection, Bilateral Eye PERRL HEENT: PERRL/EOMI, TMs normal, pharyngeal erythema; No tonsillar exudate Neck: non-tender, full range of motion, supple, normal inspection Respiratory: chest non-tender, lungs clear, normal breath sounds, no respiratory distress, no accessory muscle use Cardiovascular: regular rate, rhythm, no edema, no murmur Gastrointestinal: normal bowel sounds, non tender, soft; No guarding Extremities: normal range of motion, non-tender, normal inspection, no pedal edema, no calf tenderness, normal capillary refill Neurologic/Psychiatric: no motor/sensory deficits, alert, normal mood/affect Skin: normal color, warm/dry Lymphatic: no adenopathy Progress/Results/Core Measures Suspected Sepsis SIRS Temperature: Pulse: Respiratory Rate: Blood Pressure / Mean: Results/Orders Lab Results Laboratory Tests Test 09/03/22 03:35 Range/Units My Orders Orders - KENIA WAITE MD Influenza A And B By Pcr (09/03/22 03:33) Covid 19 Inhouse Test (09/03/22 03:33) Rapid Strep A Screen (09/03/22 03:43) Dexamethasone Oral Soln (Ed) (Decadron I (09/03/22 03:43) Ibuprofen Tablet (Motrin Tablet) (09/03/22 03:45) Vital Signs/I&O 09/03/22 03:35 O2 Delivery Room Air Capillary Refill : Progress Note : Progress Note 36-year-old female presenting for 1 day of URI type symptoms but her main complaint is her sore throat. ABCs were intact and vitals were stable on presentation. On physical exam she does have some tonsillar erythema but no exudate. Differential includes strep throat, unlikely to be any type of abscess given there is no asymmetry, voice is normal, and no other red flags. Otherwise well-appearing. Flu, COVID, strep testing sent and is pending. Given some Decadron here for her sore throat as well as ibuprofen. Considered chest x-ray, but given clear lung sounds, she is 99 to 100% on room air breathing comfortably, I think is highly unlikely to show any signs of pneumonia. I believe she stable for discharge with outpatient follow-up. She was sent home with strict return precautions. Departure Impression Primary Impression: Upper respiratory infection Qualified Codes: J06.9 - Acute upper respiratory infection, unspecified Disposition: HOME, SELF-CARE Condition: Stable Departure-Patient Inst. Decision time for Depature: 03:50 Referrals: BRADLY BALLARD DO (PCP/Family) Primary Care Physician Patient Instructions: Viral Upper Respiratory Infection, Adult (DC) Add. Discharge Instructions: This likely is viral, but if the test comes back for strep, we will call you in an antibiotic. The steroid you received will likely last several days. The most benefit you will get for your sore throat is taking 600 mg of ibuprofen every 6 hours as well as 1000 mg of Tylenol every 6 hours. Work/School Note: Work Release Form Date Seen in the Emergency Department: Sep 03, 2022 Return to Work: Sep 05, 2022 Restrictions: Return-No Fever (24hrs) KENIA WAITE MD Sep 03, 2022 03:48
[2022-09-03 03:55] VITALS: BP 137/86
== END 2022-09-03 03:55 | disposition home or self-care (01) ==
LOC: EDUNIT# 03:26 → ER 03:29
DX: J06.9 Acute upper respiratory infection, unspecified (principal)
CPT/HCPCS: 87430; 87636; 99283